=== PATIENT | female | born 1965 | race Hispanic/Latino ===

== ENCOUNTER 2017-05-30 13:49 | Outpatient (CLI) | payer MEDICARE ==
--- NOTE | 2017-05-31 09:22 | XRay Report ---
Bilateral knees: History: Knee pain. Findings: Narrowing of the medial lateral and patellofemoral compartment right and left knee joint. Sclerotic articular surfaces with peripheral osteophytes suggestive severe degenerative changes being most pronounced at the lateral compartment right knee joint and medial compartment left knee joint. Impression: Tricompartmental degenerative changes bilaterally.
== END 2017-05-30 13:50 | disposition home or self-care (01) ==
LOC: SPVIMAG 13:49
PROVIDERS: ATTEND Orthopaedic Surgery Sports Medicine
DX: M17.0 Bilateral primary osteoarthritis of knee (principal)